=== PATIENT | female | born 1990 | race Caucasian/White ===

== ENCOUNTER 2017-04-16 08:20 | Emergency (ER) | payer MEDICAID ==
--- NOTE | ~2017-04-16 | ER ---
PATIENT'S NAME: EWELINA LORA [facility] AGE: 26 Y [address] ROOM: [place] [address] LOCATION: [facility] ADMIT DATE: 04/16/2017 ER/Outpatient Report DISCHARGE DATE: 04/16/2017 FAMILY PHYSICIAN: PHYSICIAN, NO ATTENDING PHYSICIAN: Lashanda Negron Time of Arrival: 0820 hours. Time of Evaluation/Seen: 0826 hours. IDENTIFICATION: A 26-year-old female. CHIEF COMPLAINT: Left flank pain. HISTORY OF PRESENT ILLNESS: The patient woke up at 0230 hours with left flank pain radiating to her left mid abdomen associated with nausea and vomiting. She has had no fever, no dysuria. No increased frequency of urination. No hematuria. No history of kidney stones. Last menstrual period on April 01. PAST MEDICAL HISTORY: ALLERGIES: GRAPEFRUIT AND ZOFRAN. CURRENT MEDICATIONS: 1. Nabumetone 500 mg b.i.d. 2. Vitamin D3 daily. 3. Prozac 10 mg b.i.d. MEDICAL PROBLEMS: 1. Osteoarthritis. 2. Obesity. PAST SURGICAL HISTORY: Prior Surgeries: Cholecystectomy. SOCIAL HISTORY: The patient recently moved here from [place], because she did not like her doctor in [place]. She has not yet established care here in [place]. Tobacco use, denies. Alcohol use, denies. Drug use, denies. REVIEW OF SYSTEMS: All systems were reviewed and negative other than what is noted in the HPI. PATIENT'S NAME: EWELINA LORA [facility] AGE: 26 Y [address] ROOM: [place] [address] LOCATION: [facility] ADMIT DATE: 04/16/2017 ER/Outpatient Report DISCHARGE DATE: 04/16/2017 FAMILY PHYSICIAN: PHYSICIAN, NO ATTENDING PHYSICIAN: Lashanda Negron PHYSICAL EXAMINATION: VITAL SIGNS: Height 5 feet 3 inches and weight 128.1 kg. Blood pressure 144/94, pulse 80, respiratory rate 16, temperature 98.3, and sats 95% on room air. GENERAL: A 26-year-old female, in no acute distress, although she does rate her pain at 8/10. HEENT: Unremarkable. LUNGS: Clear to auscultation. HEART: Regular rate and rhythm. No murmur, rub, or gallop. ABDOMEN: Bowel sounds present. Soft, nondistended, and tender to palpation in her lower back. No rebound or guarding. No abdominal pain. SKIN: [place], warm, and dry. No lesions or rashes noted. NEUROLOGIC: No focal deficit. LABORATORY DATA: Sedimentation rate 22, hemoglobin 13.7, hematocrit 39.6, platelets 340,000, and white count 10.5 with a normal differential. Sodium 140, potassium 3.2, chloride 108, CO2 of 23, BUN 6, creatinine 1, and blood sugar 101. Liver enzymes normal. CRP 0.55. UA; specific gravity of 1.025, pH 5, leukocytes trace, 2-5 white cells, 0-2 red cells, 2-5 epithelial cells, and a few bacteria. Urine-hCG; negative. CT scan, post cholecystectomy, otherwise, normal. IMPRESSION AND PLAN: 1. Left flank pain. The patient was given in the emergency room Toradol for pain and her pain improved to a 3/10. She will continue her current medications, and follow up with her physician of choice in 1 to 3 days. 2. Hypokalemia. KCl 10 mEq 1 daily for 5 days. Follow up either with [facility] in [facility] and a card was given to her in 1 to 3 days. The patient understands and agrees, and all questions have been answered. LASHANDA NEGRON MD CAR/modl /[id number] d: 04/17/17 1351 t: 04/19/17 1501, OUTPATIENT REPORT
[2017-04-16 08:58] LABS: BILIRUBIN URINE NEGATIVE (NEGATIVE); BLOOD URINE NEGATIVE /UL (NEGATIVE); COLOR URINE YELLOW (YELLOW); GLUCOSE URINE NEGATIVE (NEGATIVE); KETONE URINE 5 mg/dL (NEGATIVE); LEUKOCYTES URINE 25 /UL (NEGATIVE); NITRITE URINE NEGATIVE (NEGATIVE); PROTEIN URINE 15 mg/dL (NEGATIVE); SPEC GRAVITY URINE 1.025 (1.003-1.035); TURBIDITY URINE CLEAR (CLEAR); UROBILINOGEN URINE NORMAL (NORMAL)
[2017-04-16 09:05] LABS: BASOPHIL % 0.4 %; EOSINOPHIL % 0.4 %; HEMATOCRIT 39.6 % (33.0-46.0); HEMOGLOBIN 13.7 g/dL (11.0-15.0); IMMATURE GRANULOCYTE % 0.2 %; LYMPHOCYTE # 1.8 K/uL (0.8-4.0); MCH 28.8 pg (27.0-34.0); MCHC 34.6 gm/dL (32.0-36.5); MCV 83.2 fl (83.0-98.0); MONOCYTE # 0.7 K/uL (0.0-1.0); MONOCYTE % 6.8 %; MPV 9.2 fl (9.4-12.4); NEUTROPHIL # (ANC) 7.9 K/uL (1.8-7.8); NEUTROPHIL % 75.2 %; NRBC % 0 /100WBC (0-0.00); PLATELET COUNT 340 K/uL (150-450); RBC 4.76 M/uL (3.50-5.00); RDW-CV 12.8 % (11.9-14.6); WBC 10.5 K/uL (4.0-11.0)
[2017-04-16 09:12] LABS: RBC URINE 0-2 #/HPF (NEGATIVE)
[2017-04-16 09:13] LABS: BACTERIA URINE FEW (NEGATIVE)
[2017-04-16 09:29] LABS: ALBUMIN 3.8 gm/dL (3.5-5.0); ANION GAP 12.2 (10.0-19.0); CALCIUM 8.9 mg/dL (8.5-10.5); POTASSIUM 3.2 mMol/L (3.7-5.1); TOTAL BILIRUBIN 0.7 mg/dL (0.0-1.5); TOTAL PROTEIN 7.6 g/dL (6.0-8.4)
== END 2017-04-16 11:23 | disposition disaster alternative care site (69) ==
LOC: GMED 08:20
PROVIDERS: Family Medicine
DX: R10.9 Unspecified abdominal pain (principal); E87.6 Hypokalemia; M19.90 Unspecified osteoarthritis, unspecified site; E66.9 Obesity, unspecified; Z90.49 Acquired absence of other specified parts of digestive tract; Z88.8 Allergy status to other drugs, medicaments and biological substances; Z91.018 Allergy to other foods; Z79.899 Other long term (current) drug therapy
CPT/HCPCS: J1885